=== PATIENT | female | born 1960 | race Caucasian/White ===

== ENCOUNTER 2017-03-30 15:27 | Emergency (ER) | payer OTHER ==
[2017-03-30] MEDS ORDERED: IV NORMAL SALINE 1000ML BAG 1,000 ML IV SCH (16:01)
--- NOTE | 2017-03-30 16:07 | PHYS DOC ---
Adult General Chief Complaint Chief Complaint: ABDOMINAL PAIN HPI HPI Patient is a 56 year old female who presents with nausea vomiting and abdominal pain. She states his been going on for several weeks but is been getting more frequent and more intense. She describes the pain as a crampy sensation in her epigastric area radiates around to her right upper quadrant into her back. She's vomited yesterday a few times without any blood in it. She denies any constipation or diarrhea. She states the symptoms coming ago they come on for a few minutes and then resolved by himself. Yesterday got really intense and lasted for couple hours. She has had a cholecystectomy, hysterectomy. She denies any fevers chills shortness of breath. She denies any chest discomfort or pain. Review of Systems Review of Systems Constitutional: Denies fever or chills [] Eyes: Denies change in visual acuity, redness, or eye pain [] HENT: Denies nasal congestion or sore throat [] Respiratory: Denies cough or shortness of breath [] Cardiovascular: No additional information not addressed in HPI [] GI: Positive for abdominal pain, nausea, vomiting, Deniesbloody stools or diarrhea [] : Denies dysuria or hematuria [] Musculoskeletal: Denies back pain or joint pain [] Integument: Denies rash or skin lesions [] Neurologic: Denies headache, focal weakness or sensory changes [] Endocrine: Denies polyuria or polydipsia [] Current Medications Current Medications Current Medications Medications (Trade) Dose Ordered Sig/Rio Start Time Stop Time Status Last Admin Dose Admin Morphine Sulfate 2 mg PRN Q15MIN PRN 03/30/17 16:15 03/31/17 16:14 03/30/17 17:01 2 MG Multi-Ingredient Mouthwash/Gargle (Gi Cocktail Single Dose) 15 ml 1X ONCE 03/30/17 18:30 03/30/17 18:31 DC 03/30/17 18:23 15 ML Ondansetron HCl (Zofran) 4 mg 1X ONCE 03/30/17 17:00 03/30/17 17:01 DC 03/30/17 17:01 4 MG Promethazine HCl 25 mg/Sodium Chloride 51 ml @ 101 mls/hr 1X ONCE 03/30/17 18:30 03/30/17 19:00 03/30/17 18:14 101 MLS/HR Sodium Chloride 1,000 ml @ 1,000 mls/hr Q1H 03/30/17 16:01 03/30/17 17:00 DC 03/30/17 16:24 1,000 MLS/HR Allergies Allergies Allergies Coded Allergies Type Severity Reaction Last Updated Verified iodine Allergy Unknown 03/30/17 Yes shellfish derived Allergy Unknown 03/30/17 Yes Physical Exam Physical Exam Constitutional: Well developed, well nourished, no acute distress, non-toxic appearance. [] HENT: Normocephalic, atraumatic, bilateral external ears normal, oropharynx moist, no oral exudates, nose normal. [] Eyes: PERRLA, EOMI, conjunctiva normal, no discharge. [] Neck: Normal range of motion, no tenderness, supple, no stridor. [] Cardiovascular:Heart rate regular rhythm, tachycardic, no murmur [] Lungs & Thorax: Bilateral breath sounds clear to auscultation [] Abdomen: Bowel sounds normal, soft, mild tenderness palpation the epigastric and right upper quadrant, no rebound or guarding, no masses, no pulsatile masses. [] Skin: Warm, dry, no erythema, no rash. [] Back: No tenderness, no CVA tenderness. [] Extremities: No tenderness, no cyanosis, no clubbing, ROM intact, no edema. [] Neurologic: Alert and oriented X 3, normal motor function, normal sensory function, no focal deficits noted. [] Psychologic: Affect normal, judgement normal, mood normal. [] Current Patient Data Vital Signs Vital Signs Date Time Temp Pulse Resp B/P (MAP) Pulse Ox O2 Delivery O2 Flow Rate FiO2 03/30/17 17:30 94 16 152/82 (105) 94 Room Air 03/30/17 15:40 98.3 98.3 Lab Values Laboratory Tests Test 03/30/17 15:36 03/30/17 15:50 Urine Collection Type Unknown Urine Color Yellow Urine Clarity Clear Urine pH 5.5 Urine Specific [place] 1.010 Urine Protein Negative mg/dL (NEG-TRACE) Urine Glucose (UA) Negative mg/dL (NEG) Urine Ketones (Stick) Negative mg/dL (NEG) Urine Blood Negative (NEG) Urine Nitrite Negative (NEG) Urine Bilirubin Negative (NEG) Urine Urobilinogen Dipstick 0.2 mg/dL (0.2 mg/dL) Urine Leukocyte Esterase Negative (NEG) Urine RBC 0 /HPF (0-2) Urine WBC Occ /HPF (0-4) Urine Squamous Epithelial Cells Few /LPF Urine Bacteria Few /HPF (0-FEW) Urine Mucus Slight /LPF Urine Opiates Screen Neg (NEG) Urine Methadone Screen Neg (NEG) Urine Barbiturates Neg (NEG) Urine Phencyclidine Screen Neg (NEG) Urine Amphetamine/Methamphetamine Pos (NEG) Urine Benzodiazepines Screen Pos (NEG) Urine Cocaine Screen Neg (NEG) Urine Cannabinoids Screen Neg (NEG) Urine Ethyl Alcohol Neg (NEG) White Blood Count 10.4 x10^3/uL (4.0-11.0) Red Blood Count 5.86 x10^6/uL (3.50-5.40) H Hemoglobin 14.1 g/dL (12.0-15.5) Hematocrit 44.6 % (36.0-47.0) Mean Corpuscular Volume 76 fL (79-100) L Mean Corpuscular Hemoglobin 24 pg (25-35) L Mean Corpuscular Hemoglobin Concent 32 g/dL (31-37) Red Cell Distribution Width 16.9 % (11.5-14.5) H Platelet Count 455 x10^3/uL (140-400) H Neutrophils (%) (Auto) 63 % (31-73) Lymphocytes (%) (Auto) 29 % (24-48) Monocytes (%) (Auto) 6 % (0-9) Eosinophils (%) (Auto) 1 % (0-3) Basophils (%) (Auto) 2 % (0-3) Neutrophils # (Auto) 6.5 x10^3uL (1.8-7.7) Lymphocytes # (Auto) 3.0 x10^3/uL (1.0-4.8) Monocytes # (Auto) 0.6 x10^3/uL (0.0-1.1) Eosinophils # (Auto) 0.1 x10^3/uL (0.0-0.7) Basophils # (Auto) 0.2 x10^3/uL (0.0-0.2) Prothrombin Time 12.0 SEC (11.7-14.0) Prothrombin Time INR 0.9 (0.8-1.1) PTT 27 SEC (24-38) Sodium Level 138 mmol/L (136-145) Potassium Level 3.5 mmol/L (3.5-5.1) Chloride Level 99 mmol/L (98-107) Carbon Dioxide Level 29 mmol/L (21-32) Anion Gap 10 (6-14) Blood Urea Nitrogen 13 mg/dL (7-20) Creatinine 1.0 mg/dL (0.6-1.0) Estimated GFR (Cockcroft-Gault) 57.4 Glucose Level 106 mg/dL (70-99) H Calcium Level 9.2 mg/dL (8.5-10.1) Magnesium Level 2.1 mg/dL (1.8-2.4) Total Bilirubin 0.6 mg/dL (0.2-1.0) Direct Bilirubin 0.1 mg/dL (0.0-0.2) Aspartate Amino Transferase (AST) 76 U/L (15-37) H Alanine Aminotransferase (ALT) 96 U/L (14-59) H Alkaline Phosphatase 184 U/L (46-116) H Creatine Kinase 167 U/L (26-192) Creatine Kinase MB (Mass) 1.1 ng/mL (0.0-3.6) Creatine Kinase MB Relative Index 0.7 % (0-4) Troponin I Quantitative < 0.017 ng/mL (0.000-0.055) Total Protein 10.7 g/dL (6.4-8.2) H Albumin 4.5 g/dL (3.4-5.0) Lipase 234 U/L (73-393) Laboratory Tests 03/30/17 15:50 Laboratory Tests 03/30/17 15:50 EKG EKG EKG shows sinus tachycardia rate of [address] elevations or concerning T-wave inversions, normal axis, QTC 409 ms, as interpreted by me. Radiology/Procedures Radiology/Procedures [facility] [address] [place] [address] IMAGING REPORT Signed PATIENT: ITZEL DE LOS SANTOS ACCOUNT: [id number] : 1960 LOCATION: ER AGE: 56 SEX: F EXAM STATUS: REG ER ORD. PHYSICIAN: LEAH CHAND MD REASON: abd pain PROCEDURE: CT ABD PEL W/ORAL CONTRST ONLY CT Abdomen and Pelvis without Intravenous Contrast: History: Abdominal pain. Comparison: None. Technique: After administration of oral contrast only, CT of the abdomen and pelvis was performed. Exposure: One or more of the following individualized dose reduction techniques were utilized for this examination: 1. Automated exposure control 2. Adjustment of the mA and/or kV according to patient size 3. Use of iterative reconstruction technique Findings: Evaluation of solid organs is limited by lack of intravenous contrast. Images of the lower chest demonstrate emphysematous changes. Liver, spleen, pancreas, and bilateral adrenal glands unremarkable. Gallbladder is absent. Bilateral kidneys and ureters are free stone or obstruction. Aortic atherosclerosis is seen. Urinary bladder is unremarkable. Uterus is absent. No bowel obstruction or bowel inflammation is identified. Appendix is not confidently identified, but no inflammation is seen adjacent to the cecum. Impression: 1. No acute abnormality identified in the abdomen or pelvis. 2. Pulmonary emphysema. Electronically signed by: Joe Alvares MD (03/30/2017 5:58 PM) [facility] DICTATED and SIGNED BY: JOE ALVARES MD DATE: 03/30/17 [id number] CC: LEAH CHAND MD; NO PCP ~ Impressions: Abdominal pain Nausea COPD Course & Med Decision Making Course & Med Decision Making Pertinent Labs and Imaging studies reviewed. (See chart for details) Left show slightly elevated LFTs but CT scan doesn't show any acute abnormalities. She's complaining of a cough and being out of her albuterol inhaler. We'll discharge her with a Z-Satish and albuterol prescription. She is to follow-up with Dr. Tuttle, she take Phenergan as needed for nausea, return precautions given. She is being discharged in stable condition at this time. Dragon Disclaimer Dragon Disclaimer This electronic medical record was generated, in whole or in part, using a voice recognition dictation system. Departure Departure Impression: Primary Impression: Abdominal pain Disposition: 01 HOME, SELF-CARE Condition: STABLE Referrals: NO PCP (PCP) Patient Instructions: Abdominal Pain Additional Instructions: Your labs in addition to vitals and CT scan of your abdomen pelvis did not show any acute abnormalities. You do have slightly elevated liver function tests which will need to be followed up as an outpatient. Your symptoms could be related to a food allergy such as lactose or gluten sensitivities. Your being discharged home with antinausea meds: Phenergan. Please be careful using these as they can make you sleepy therefore do not drive your car or drink alcohol or taking these. You will need to follow-up with Dr. Tuttle. Please call his office to schedule follow-up appointment. He remained discharged with a list of other primary care physicians within the area he can follow-up with. Return ER for severe pain, uncontrolled nausea vomiting, or other concerns. Your being discharged with azithromycin and albuterol inhaler for your COPD. Scripts Azithromycin (AZITHROMYCIN PACKET) 1 Gm Packet 1 PACKET PO ONCE, #1 PACKET as directed by the packet Prov: LEAH CHAND MD 03/30/17 Albuterol Sulfate (VENTOLIN HFA INHALER) 18 Gm Hfa.aer.ad 2 PUFF INH Q4HRS for FOR ASTHMA, #1 INHALER 0 Refills Prov: LEAH CHAND MD 03/30/17 Promethazine Hcl (PROMETHAZINE HCL) 25 Mg Tablet 1 TAB PO PRN Q6HRS Y for NAUSEA, #20 TAB Prov: LEAH CHAND MD 03/30/17 Problem Qualifiers Primary Impression: Abdominal pain Abdominal location: right upper quadrant Qualified Codes: R10.11 - Right upper quadrant pain LEAH CHAND MD Mar 30, 2017 16:07
[2017-03-30 16:14] LABS: BASO # 0.2 x10^3/uL (0.0-0.2); BASO % 2 % (0-3); EOS % 1 % (0-3); HEMATOCRIT 44.6 % (36.0-47.0); HEMOGLOBIN 14.1 g/dL (12.0-15.5); LYMPH % 29 % (24-48); MEAN CORPUSCULAR HEMOGLOBIN 24 pg (25-35); MEAN CORPUSCULAR HGB CONC 32 g/dL (31-37); MEAN CORPUSCULAR VOLUME 76 fL (79-100); MONO % 6 % (0-9); NEUT % 63 % (31-73); PLATELET COUNT 455 x10^3/uL (140-400); RED BLOOD COUNT 5.86 x10^6/uL (3.50-5.40); RED CELL DISTRIBUTION WIDTH 16.9 % (11.5-14.5); WHITE BLOOD COUNT 10.4 x10^3/uL (4.0-11.0)
[2017-03-30 16:14] LABS: BILIRUBIN,URINE NEGATIVE (NEG); GLUCOSE,URINE NEGATIVE (NEG); NITRITE,URINE NEGATIVE (NEG); PH,URINE 5.5; PROTEIN,URINE NEGATIVE (NEG-TRACE); UROBILINOGEN,URINE 0.2 mg/dL (0.2 mg/dL)
[2017-03-30] MEDS ORDERED: ONDANSETRON PF 4 MG/2 ML VIAL. IV ONE ×2 (16:15→17:00)
[2017-03-30 16:21] LABS: BARBITURATES NEG (NEG); BENZODIAZEPINES POS (NEG); CANNABINOIDS NEG (NEG); COCAINE NEG (NEG); METHADONE NEG (NEG); OPIATES NEG (NEG); PHENCYCLIDINE NEG (NEG)
[2017-03-30 16:22] LABS: INR 0.9 (0.8-1.1)
[2017-03-30 16:23] LABS: BACTERIA,URINE FEW /HPF (0-FEW); RBC,URINE 0 /HPF (0-2); SQUAMOUS EPITHELIAL CELL,UR FEW /LPF; WBC,URINE OCC /HPF (0-4)
[2017-03-30 16:24] LABS: CALCIUM 9.2 mg/dL (8.5-10.1); GFR 57.4; POTASSIUM 3.5 mmol/L (3.5-5.1)
[2017-03-30] MEDS: MORPHINE SULFATE 2 MG/ML DISP.SYRIN. IV/SQ PRN ×2 (16:25→17:01)
[2017-03-30 16:29] LABS: ALBUMIN 4.5 g/dL (3.4-5.0); DIRECT BILIRUBIN 0.1 mg/dL (0.0-0.2); TOTAL BILIRUBIN 0.6 mg/dL (0.2-1.0); TOTAL PROTEIN 10.7 g/dL (6.4-8.2)
[2017-03-30 16:38] LABS: CKMB MASS 1.1 ng/mL (0.0-3.6)
[2017-03-30] MEDS ORDERED: HYDR12.58 PO (17:09)
[2017-03-30] MEDS ORDERED: DICY10CA3 PO (17:09)
[2017-03-30] MEDS ORDERED: ACET325T9 PO (17:09)
[2017-03-30] MEDS ORDERED: TRAM50TA PO (17:09)
[2017-03-30] MEDS ORDERED: GABA-586 PO (17:09)
[2017-03-30] MEDS ORDERED: CYCL5TAB PO (17:09)
[2017-03-30 17:30] VITALS: BP 152/82
--- NOTE | 2017-03-30 18:02 | RAD ---
CT Abdomen and Pelvis without Intravenous Contrast: History: Abdominal pain. Comparison: None. Technique: After administration of oral contrast only, CT of the abdomen and pelvis was performed. Exposure: One or more of the following individualized dose reduction techniques were utilized for this examination: 1. Automated exposure control 2. Adjustment of the mA and/or kV according to patient size 3. Use of iterative reconstruction technique Findings: Evaluation of solid organs is limited by lack of intravenous contrast. Images of the lower chest demonstrate emphysematous changes. Liver, spleen, pancreas, and bilateral adrenal glands unremarkable. Gallbladder is absent. Bilateral kidneys and ureters are free stone or obstruction. Aortic atherosclerosis is seen. Urinary bladder is unremarkable. Uterus is absent. No bowel obstruction or bowel inflammation is identified. Appendix is not confidently identified, but no inflammation is seen adjacent to the cecum. Impression: 1. No acute abnormality identified in the abdomen or pelvis. 2. Pulmonary emphysema. Electronically signed by: Joe Hoffman MD (03/30/2017 5:58 PM) [facility]
[2017-03-30] MEDS ORDERED: PROM25TA10 PO (18:21)
[2017-03-30] MEDS ORDERED: PROMETHAZINE 25 MG in IV NORMAL SALINE 50ML 50 ML IV ONE (18:30)
[2017-03-30] MEDS ORDERED: LIDO:MAALOX:DONNATAL 1:1:1 15 ML SINGLE DOSE SWSW ONE (18:30)
[2017-03-30] MEDS ORDERED: VENTOLIN HFA18 GM INH (18:41)
[2017-03-30] MEDS ORDERED: AZIT1PAC9 PO (18:41)
--- NOTE | 2017-03-31 07:34 | EKG ---
[facility] [address] [place] [address] Test Date: 2017-03-30 Test Time: 16:00:44 Pat Name: ITZEL DE LOS SANTOS Department: Room: Gender: F Forensic Science Technician: : 1960 Requested By: LEAH CHAND Order Number: [id number] Reading MD: Measurements Intervals [place] Rate: 102 P: 10 SC: 140 QRS: 48 QRSD: 84 T: 47 QT: 372 QTc: 489 Interpretive Statements SINUS TACHYCARDIA QRS(T) CONTOUR ABNORMALITY CONSIDER ANTEROLATERAL MYOCARDIAL DAMAGE CONSIDER INFERIOR MYOCARDIAL DAMAGE RI6.01 Unconfirmed report No previous ECG available for comparison
== END 2017-03-30 19:04 | disposition home or self-care (01) ==
LOC: ER 15:27
DX: R10.11 Right upper quadrant pain (principal); R10.13 Epigastric pain; R11.2 Nausea with vomiting, unspecified; J44.9 Chronic obstructive pulmonary disease, unspecified; Z91.041 Radiographic dye allergy status; Z91.013 Allergy to seafood
CPT/HCPCS: 36415; 74176; 80048; 80076; 80307; 81001; 82553; 83690; 83735; 84484; 85025; 85610; 85730; 93005; 96361; 96365; 96375; 96376; 99285; J2270; J2405; J2550; J7030; G0479

== ENCOUNTER → 2019-08-10 | Outpatient (CLI) | payer MEDICARE, MEDICAID ==
[2018-01-28 11:40] VITALS: BP 132/60
[~2019-08-10] MED LIST: ACET325T9 PO; ACET500T68 PO; ASPI81TA59 PO; ATOR40TA59 PO; AZIT1PAC9 PO; CHOL500016 PO; CYCL5TAB PO; DICL150D4 TP; DICY10CA3 PO; FERR-36 PO; FLUT9.9S NS; GABA300C18 PO; GLYC10.7 IH; HYDR12.58 PO; MULT-245 PO; NITR0.4T22 SL; OMEP40CA45 PO; PRAS10TA9 PO; PROM25TA10 PO; QUET50TA9 PO; REGADENOSON 0.4 MG/5 ML DISP.SYRIN. IV ONE; SALI1KIT9 TP; TIOT18CA IH; TRAM50TA PO; VENTOLIN HFA18 GM INH
--- NOTE | 2019-08-10 11:41 | CARD ---
MR#: [id number] Date of Study: 08/10/2019 Ordering Physician: DENIA PISANO, Referring Physician: DENIA PISANO, Tech: Marybeth Hurtadobuck APPROVED REPORT EXAM: Two-dimensional and M-mode echocardiogram with Doppler and color Doppler. Other Information Quality : AverageHR: 74bpm Technically limited study due to smoking. INDICATION Cardiac Disease: CAD RISK FACTORS Hypertension Hyperlipidemia Previous smoker 2D DIMENSIONS RVDd2.4 (2.9-3.5cm)Left Atrium(2D)3.3 (1.6-4.0cm) IVSd0.9 (0.7-1.1cm)Aortic Root(2D)3.1 (2.0-3.7cm) LVDd4.3 (3.9-5.9cm)LVOT Diameter2.0 (1.8-2.4cm) PWd0.9 (0.7-1.1cm)LVDs2.9 (2.5-4.0cm) FS (%) 32.5 %SV52.0 ml LVEF(%)61.1 (>50%) Aortic Valve AoV Peak Ramsey.122.6cm/sAoV VTI22.8cm AO Peak GR.6.0mmHgLVOT Peak Ramsey.97.5cm/s LVOT VTI 21.56cmAO Mean GR.3mmHg RIKKI (VMAX)2.10pc9VRG (VTI)2.99cm2 Mitral Valve MV E Rnugruai77.8cm/sMV DECEL WCNP384ei MV A Ugqfvjtv89.8cm/sMV E Mean Gr.1mmHg MV UIN33qcL/A Ratio1.2 MVA (PHT)4.16cm2 TDI E/Lateral E'7.3E/Medial E'10.2 Pulmonary Valve PV Peak Sowwsesw56.1cm/sPV Peak Grad.3mmHg Tricuspid Valve TR P. Xuzzddto222in/sRAP [id number] TR Peak Gr.02ayAhTJKZ62eiBo Pulmonary Vein S1 Mquyndug84.5cm/sD2 Haspdkmx40.2cm/s PVa gfftmnfo174mdxn LEFT VENTRICLE The left ventricle is normal size. There is normal left ventricular wall thickness. The left ventricu lar systolic function is normal. The Ejection Fraction is 55%. There is normal LV segmental wall jaylin on. Transmitral Doppler flow pattern is Grade II-pseudonormal filling dynamics. RIGHT VENTRICLE The right ventricle is normal size. There is normal right ventricular wall thickness. The right ventr icular systolic function is normal. ATRIA The left atrium size is normal. The right atrium size is normal. The interatrial septum is intact wit h no evidence for an atrial septal defect or patent foramen ovale as noted on 2-D or Doppler imaging. AORTIC VALVE The aortic valve is normal in structure and function. Doppler and Color Flow revealed no significant aortic regurgitation. There is no significant aortic valvular stenosis. MITRAL VALVE The mitral valve is normal in structure and function. There is no evidence of mitral valve prolapse. There is no mitral valve stenosis. Doppler and Color-flow revealed trace mitral regurgitation. TRICUSPID VALVE The tricuspid valve is normal in structure and function. Doppler and Color Flow revealed trace tricus pid regurgitation with an estimated PAP of 31 mmHg. There is no tricuspid valve stenosis. PULMONIC VALVE The pulmonic valve is not well visualized. Doppler and Color Flow revealed no pulmonic valvular regur gitation. GREAT VESSELS The aortic root is normal in size. The IVC is normal in size and collapses >50% with inspiration. PERICARDIAL EFFUSION There is no evidence of significant pericardial effusion. Critical Notification Critical Value: No <Conclusion> The left ventricular systolic function is normal. The Ejection Fraction is 55%. There is normal LV segmental wall motion. Trace mitral regurgitation. Trace tricuspid regurgitation with an estimated PAP of 31 mmHg. There is no evidence of significant pericardial effusion. Signed by : Denia Pisano, Electronically Approved : 08/10/2019 11:41:09
--- NOTE | 2019-08-10 13:44 | RAD ---
MR#: [id number] Date of Study: 08/10/2019 Ordering Physician: DENIA PISANO, Referring Physician: NRI NOBLE Tech: RT Rosendo (R) (N) APPROVED REPORT Test Type: Pharmacological Stress Nurse/Tech: Farhana Verdugo RN Test Indications: CAD Cardiac History: Hypertension,COPD,2 stents 1 year ago Medications: See Electronic Medical Record Medical History: See Electronic Medical Record Resting ECG: SR Resting Heart Rate: 79 bpm Resting Blood Pressure: 130/71mmHg Pretest Chest Pain: No chest pain Nurse/Tech Notes S1,S2 and lungs slightly diminished in the bases. Consent: The procedure was explained to the patient in lay terms. Informed consent was witnessed. Reymundo eout was entered into [employer]. History and Stress Test performed by KEVIN Bell, MARJORIE (R) (N) Pharm. Details Pharmacologic stress testing was performed using 0.4mg per 5ml of regadenoson given intravenously ove r 7-10 seconds. Stress Symptoms Dyspnea,Nausea,headache POST EXERCISE Reason for Termination: Infusion complete Target HR: No Max HR: 102 bpm Max Blood Pressure: 157/77mmHg Blood Pressure response to exercise: Normal blood pressure response during stress. Heart Rate response to exercise: WNL Chest Pain: No. Arrhythmia: No. INTERPRETATION Stress EKG Conclusion: The resting EKG shows a sinus rhythm with minimal nonspecific T-wave changes. The stress EKG shows no significant changes with exertion. No EKG evidence of stressed induced ischemia. Imaging Protocol IMAGE PROTOCOL: Rest Tc-99m/stress Tc-99m 1 day Rest: Stress: Viability: Radiopharm.Tc99m FgveadrcsFs25p Sestamibi Dose10.4mCi 32mCi Duration 15min. 10min. Img Date 08/10/2019 08/10/2019 Inj-Img Aytx19cpx. 60min. Rest Admin Site:IV - Left HandAdministrator:KEVIN Bell, MARJORIE (R)(N) Stress Admin Site: IV - Left HandAdministrator: RT Jennifer Robbins)(N) STRESS DATA End Diast. Vol.74.0mlAv. Heart Rate81.0bpm End Syst. Vol.11.0mlCO Index BSA0.0L/min Myocardial Lezk999.0gEject. Asihfmrw52.0% Stress Rates Pk. Fill Rate4.13EDV/secLVtime Pk. Fill 124.71msec Pk. Empty Rate3.53ESV/secLVtime Pk. Eject93.68msec /3 Pk. Fill2.04EDV/sec Stress Scores Regional WT0.00Summed WT0.00 Regional WM0.00Summed WM0.00 LV Perfusion The stress scans show no significant defects. The rest scans show no significant defects. Nuclear imaging shows no reversible ischemia or infarct. Wall Motion Normal left ventricular systolic function with an ejection fraction of greater than 70%. LV Perf. Quant 17 Seg. SSS3.00 17 Seg. SRS4.00 17 Seg. SDS1.00 Stress Defect Extent (% LAD)6.90Rest Defect Extent (% LAD)0.00Rev. Defect Extent (% LAD)6.90 Stress Defect Extent (% LCX) 0.00Rest Defect Extent (% LCX)7.50Rev. Defect Extent (% LCX)0.00 Stress Defect Extent (% RCA)0.00Rest Defect Extent (% RCA)0.00Rev. Defect Extent (% RCA)0.00 Stress Defect Extent (% CHEY)2.40Rest Defect Extent (% CHEY)1.30Rev. Defect Extent (% CHEY)2.40 Conclusion 1. No EKG evidence of stress-induced ischemia. 2. Nuclear imaging shows no reversible ischemia or infarct. 3. Normal left ventricular systolic function with an ejection fraction of greater than 70%. 4. Low risk nuclear stress test. Signed by : Mendoza oRth MD Electronically Approved : 08/10/2019 13:43:56
== END | disposition home or self-care (01) ==
LOC: NM 10:18
PROVIDERS: ATTEND Internal Medicine Cardiovascular Disease
DX: I25.10 Atherosclerotic heart disease of native coronary artery without angina pectoris (principal); I10 Essential (primary) hypertension; J44.9 Chronic obstructive pulmonary disease, unspecified; Z95.5 Presence of coronary angioplasty implant and graft
CPT/HCPCS: 78452; 93017; 93306; A9500; J2785

== ENCOUNTER → 2019-12-20 | Outpatient (CLI) | payer OTHER, MEDICAID ==
[2018-01-28 11:40] VITALS: BP 132/60
[~2019-12-20] MED LIST changes: -REGADENOSON 0.4 MG/5 ML DISP.SYRIN. IV ONE
--- NOTE | 2019-12-20 15:43 | KCIC ---
EXAM: Right knee, 2 views HISTORY: Right knee pain after twisting injury. COMPARISON: None. FINDINGS: No fractures are identified. Joint spaces are maintained. Alignment is normal. There is a small joint effusion. IMPRESSION: 1. Small joint effusion. Electronically signed by: Rose Barnett MD (12/20/2019 3:40 PM) [id number]
--- NOTE | 2019-12-20 15:44 | KCIC ---
EXAM: Right foot 2 views. HISTORY: Right foot pain and swelling after trauma. COMPARISON: None. FINDINGS: Two views of the right foot are obtained. No fractures are identified. Alignment is normal. Tarsometatarsal osteoarthritis appears mild for patient age. IMPRESSION: 1. No fracture. Electronically signed by: Rose Barnett MD (12/20/2019 3:41 PM) [id number]
== END | disposition home or self-care (01) ==
LOC: KCIC 11:37
PROVIDERS: ATTEND Internal Medicine
DX: M19.071 Primary osteoarthritis, right ankle and foot (principal); M25.461 Effusion, right knee; M25.474 Effusion, right foot; W18.09XA Striking against other object with subsequent fall, initial encounter; Y93.89 Activity, other specified; Y92.89 Other specified places as the place of occurrence of the external cause; Y99.8 Other external cause status
CPT/HCPCS: 73560; 73620